=== PATIENT | female | born 1995 | race Two or more races ===

== ENCOUNTER 2018-12-07 15:08 | Emergency (ER) | payer OTHER ==
[~2018-12-07] VITALS: Ht 167.6 cm; Wt 107.0 kg
[2018-12-07] MEDS ORDERED: IV NORMAL SALINE 1,000ML 1,000 ML IV SCH (15:16)
--- NOTE | 2018-12-07 15:22 | PHYS DOC ---
Adult General Chief Complaint Chief Complaint: BACK PAIN OR INJURY [facility] HPI Patient is a 23-year-old female who presents with complaint of right-sided posterior chest wall pain that started about 2 hours ago. Patient states that it woke her from sleep. She describes pain as sharp and stabbing and states the pain is worsened with deep breathing. She denies any cough, leg swelling or pain. She denies any history of blood clots but does admit to being on implanted control. Patient states that she is feeling short of breath because it hurts to breathe. Nothing improves the symptoms.[] Review of Systems Review of Systems Constitutional: Denies fever or chills [] Respiratory: Denies cough. Complains of shortness of breath. [] Cardiovascular: No additional information not addressed in HPI [] GI: Denies abdominal pain, nausea, vomiting or diarrhea [] Musculoskeletal: Complains of right upper back/posterior pleuritic pain [] Integument: Denies rash or skin lesions [] Neurologic: Denies headache, focal weakness or sensory changes [] All other systems were reviewed and found to be within normal limits, except as documented in this note. Physical Exam Physical Exam Constitutional: Well developed, well nourished, in moderate distress, appears moderately anxious. [] HENT: Normocephalic, atraumatic, bilateral external ears normal, oropharynx moist, no oral exudates, nose normal. [] Eyes: PERRLA, EOMI, conjunctiva normal, no discharge. [] Neck: Normal range of motion, no tenderness, supple. [] Cardiovascular: Mildly tachycardic rate with regular rhythm[] Lungs & Thorax: Bilateral breath sounds clear to auscultation [] Abdomen: Bowel sounds normal, soft, no tenderness. [] Skin: Warm, dry, no erythema, no rash. [] Back: No tenderness, no CVA tenderness. [] Extremities: No tenderness, no cyanosis, no clubbing, ROM intact, no edema. [] Neurologic: Alert and oriented X 3, no focal deficits noted. [] EKG EKG EKG demonstrates normal sinus rhythm with rate of 83.[] Radiology/Procedures Radiology/Procedures [] Impressions: PROCEDURE: PORTABLE CHEST 1V Portable chest, 12/07/2018: HISTORY: Chest wall pain The heart size and pulmonary vascularity are normal. No pulmonary infiltrate is seen. There is no evidence of pleural fluid. IMPRESSION: No acute cardiopulmonary abnormality is detected. Electronically signed by: Elliot Pedro MD (12/07/2018 3:37 PM) [facility] Course & Med Decision Making Course & Med Decision Making Pertinent Labs and Imaging studies reviewed. (See chart for details) [] Dragon Disclaimer Dragon Disclaimer This electronic medical record was generated, in whole or in part, using a voice recognition dictation system. Departure Departure: Impression: Primary Impression: Pleurisy Disposition: 01 HOME, SELF-CARE Condition: STABLE Patient Instructions: Pleurisy Scripts Acetaminophen With Codeine (TYLENOL WITH CODEINE #3 TABLET) 1 Each Tablet 1 TAB PO Q4-6HRS PRN for PAIN, #12 TAB Prov: CARMEN NOLAN Jr. DO 12/07/18 CARMEN NOLAN Jr. DO Dec 07, 2018 15:22
[2018-12-07] MEDS ORDERED: ONDANSETRON PF 4 MG/2 ML VIAL. ONE (15:24)
[2018-12-07] MEDS ORDERED: ONDANSETRON PF 4 MG/2 ML VIAL. IV ONE (15:30)
--- NOTE | 2018-12-07 15:40 | RAD ---
Portable chest, 12/07/2018: HISTORY: Chest wall pain The heart size and pulmonary vascularity are normal. No pulmonary infiltrate is seen. There is no evidence of pleural fluid. IMPRESSION: No acute cardiopulmonary abnormality is detected. Electronically signed by: Elliot Pedro MD (12/07/2018 3:37 PM) [facility]
[2018-12-07 15:41] LABS: BASO # 0.1 x10^3/uL (0.0-0.2); BASO % 1 % (0-3); EOS # 0.1 x10^3/uL (0.0-0.7); EOS % 2 % (0-3); HEMATOCRIT 38.2 % (36.0-47.0); HEMOGLOBIN 13.2 g/dL (12.0-15.5); LYMPH # 2.8 x10^3/uL (1.0-4.8); LYMPH % 30 % (24-48); MEAN CORPUSCULAR HEMOGLOBIN 26 pg (25-35); MEAN CORPUSCULAR HGB CONC 35 g/dL (31-37); MEAN CORPUSCULAR VOLUME 77 fL (79-100); MONO # 0.5 x10^3/uL (0.0-1.1); MONO % 6 % (0-9); NEUT # 5.7 x10^3uL (1.8-7.7); NEUT % 61 % (31-73); PLATELET COUNT 254 x10^3/uL (140-400); RED CELL DISTRIBUTION WIDTH 14.4 % (11.5-14.5); WHITE BLOOD COUNT 9.3 x10^3/uL (4.0-11.0)
[2018-12-07 16:03] LABS: ALBUMIN 3.8 g/dL (3.4-5.0); CALCIUM 9.2 mg/dL (8.5-10.1); CREATININE 0.8 mg/dL (0.6-1.0); GFR 90.5; MAGNESIUM 1.9 mg/dL (1.8-2.4); POTASSIUM 3.8 mmol/L (3.5-5.1); TOTAL BILIRUBIN 0.3 mg/dL (0.2-1.0); TOTAL PROTEIN 7.8 g/dL (6.4-8.2)
[2018-12-07] MEDS ORDERED: ACET-704 PO (16:18)
[2018-12-07 16:32] VITALS: BP 132/62
--- NOTE | 2018-12-07 17:52 | EKG ---
[address] [address] Test Date: 2018-12-07 Test Time: 15:25:04 Pat Name: BHUMI CHRISTENSEN Department: Room: Gender: F Health And Wellness Manager: : 1995 Requested By: CARMEN NOLAN Order Number: [id number] Reading MD: Measurements Intervals [place] Rate: 83 P: 31 TN: 144 QRS: 27 QRSD: 82 T: 7 QT: 364 QTc: 428 Interpretive Statements SINUS RHYTHM NORMAL ECG RI6.01 No previous ECG available for comparison
== END 2018-12-07 16:29 | disposition home or self-care (01) ==
LOC: ER 15:08
DX: R09.1 Pleurisy (principal); R00.0 Tachycardia, unspecified
CPT/HCPCS: 36415; 71045; 80053; 83735; 83880; 84484; 85025; 85379; 93005; 96374; 96375; 99285; J2405; J3010; J7030

== ENCOUNTER 2021-06-04 22:07 | Emergency (ER) | payer SELFPAY ==
[~2021-06-04] VITALS: Ht 162.6 cm; Wt 114.1 kg
[~2021-06-04 22:07] MED LIST: ACET-704 PO
--- NOTE | 2021-06-04 22:14 | PHYS DOC ---
Past History Past Medical History: No Pertinent History Past Surgical History: Tonsillectomy Alcohol Use: None Drug Use: None General Adult HPI: HPI: .. I am 32 week pregant.. and I have some cramping.. some pain. not delivery contractions... I worried something is wrong...". " ... I have not felt my baby move the last hour and 1/2.. " " I was too go to [facility].. but I did not want to drive down there.. if I could get checked out here. Patient is a 25 year old female who presents with above hx and complaints of - estimated 32 weeks. Pt. Gravid 2. lst. was C- section secondary to development of eclampsia.. Patient currently [facility] with [facility] Vidal [phone]. Pt. had currently a Heart Rate of 169. Pt. after told we had heart tone's refused further workup. She called [facility]- Dr. Vidal- and he advised her to go home, and if continue to have no movement or at least 5 kicks in hour to present to [facility]. Patient has had problems with an adequate intake of fluids with this - dehydration and hyperemesis gravidarum. Review of Systems: Review of Systems: Constitutional: Denies fever or chills Eyes: Denies change in visual acuity HENT: Denies nasal congestion or sore throat Respiratory: Denies cough or shortness of breath Cardiovascular: Denies chest pain or edema GI: Denies abdominal pain, nausea, vomiting, bloody stools or diarrhea : Denies dysuria Musculoskeletal: Denies back pain or joint pain Integument: Denies rash Neurologic: Denies headache, focal weakness or sensory changes Endocrine: Denies polyuria or polydipsia Lymphatic: Denies swollen glands Psychiatric: Denies depression or anxiety Family History: Family History: Noncontributory Current Medications: Current Meds: See nursing for home meds Allergies: Allergies: [place] Physical Exam: PE: Constitutional: in emotional distress, non-toxic appearance. [] HENT: Normocephalic, atraumatic, bilateral external ears normal, oropharynx moist, no oral exudates, nose normal. [] Eyes: PERRLA, EOMI, conjunctiva normal, no discharge. [] Neck: Normal range of motion, no tenderness, supple, no stridor. [] Cardiovascular:Heart rate regular rhythm, no murmur [] Lungs & Thorax: Bilateral breath sounds clear to auscultation [] Abdomen: Bowel sounds normal, soft, no tenderness, no masses, no pulsatile masses. Obese. Old surgical scar. No external bleeding noted. Skin: Warm, dry, no erythema, no rash. [] Back: No tenderness, no CVA tenderness. [] Extremities: No tenderness, no cyanosis, no clubbing, ROM intact, trace ankle edema. [] Neurologic: Alert and oriented X 3, normal motor function, normal sensory function, no focal deficits noted. DTRs +2 brachial and patella. Psychologic: Affect extremely anxious, judgement normal, mood normal. [] EKG: EKG: [] Radiology/Procedures: Radiology/Procedures: Patient refused ultrasound after she talked to her OB doctor [] Heart Score: C/O Chest Pain: N/A Risk Factors: Risk Factors: DM, Current or recent (<one month) smoker, HTN, HLP, family history of CAD, obesity. Risk Scores: Score 0 - 3: 2.5% MACE over next 6 weeks - Discharge Home Score 4 - 6: 20.3% MACE over next 6 weeks - Admit for Clinical Observation Score 7 - 10: 72.7% MACE over next 6 weeks - Early Invasive Strategies Course & Med Decision Making: Course & Med Decision Making Pertinent Labs and Imaging studies reviewed. (See chart for details) Patient currently declining work-up and labs.. Plan to follow her doctor's instructions as previously-if she does not have 5 kicks in hour to present to [facility]. Patient encouraged to increase fluid intake. Impression: 1. Decreased Movements 2. 32 Weeks 3. Gravid 2, T 1 4. Obese [] Dragon Disclaimer: Dragon Disclaimer: This electronic medical record was generated, in whole or in part, using a voice recognition dictation system. Departure Departure: Referrals: PCP,ISELA (PCP) Martin Disclaimer This chart was dictated in whole or in part using Voice Recognition software in a busy, high-work load, and often noisy Emergency Department environment. It may contain unintended and wholly unrecognized errors or omissions. JEN GARCIA MD Jun 04, 2021 22:14
[2021-06-04] MEDS ORDERED: IV RINGERS SOLUTION,LACTATED 1,000 ML IV SCH (23:30)
[2021-06-04] MEDS ORDERED: FAMOTIDINE 20 MG/2 ML VIAL IVP ONE (23:30)
[2021-06-04] MEDS ORDERED: ONDANSETRON PF 4 MG/2 ML VIAL. IVP ONE (23:30)
[2021-06-04 23:55] VITALS: BP 124/71
[2021-06-05 00:30] LABS: BARBITURATES NEG (NEG); BENZODIAZEPINES NEG (NEG); CANNABINOIDS NEG (NEG); COCAINE NEG (NEG); METHADONE NEG (NEG); OPIATES NEG (NEG); PHENCYCLIDINE NEG (NEG)
[2021-06-05 00:32] LABS: AMPHETAMINE/METHAMPHETAMINE NEG (NEG)
[2021-06-05 00:43] LABS: BACTERIA,URINE FEW /HPF (0-FEW); BILIRUBIN,URINE NEG (NEG); CLARITY,URINE CLEAR; COLOR,URINE YELLOW; GLUCOSE,URINE NEG (NEG); NITRITE,URINE NEG (NEG); RBC,URINE 0 /HPF (0-2); SQUAMOUS EPITHELIAL CELL,UR MANY /LPF
== END 2021-06-05 00:03 | disposition home or self-care (01) ==
LOC: ER 22:07
DX: O36.8130 Decreased fetal movements, third trimester, not applicable or unspecified (principal); O99.213 Obesity complicating pregnancy, third trimester; Z3A.32 32 weeks gestation of pregnancy
CPT/HCPCS: 36415; 80307; 81001; 87491; 87591; 99283-25